=== PATIENT | female | born 1980 | race Caucasian/White ===

== ENCOUNTER 2022-07-25 07:58 | Day surgery (SDC) | payer BC, OTHER ==
[~2022-07-25] VITALS: Ht 177.8 cm; Wt 106.8 kg
--- NOTE | ~2022-07-25 | OR ---
[facility] [address] [place], [place] [address] Draft DATE OF OPERATION: 07/25/2022 SURGEON: Miguel Schulte MD PREOPERATIVE DIAGNOSIS: Chronic tonsillitis, tonsillolithiasis. POSTOPERATIVE DIAGNOSIS: Chronic tonsillitis, tonsillolithiasis. PROCEDURE: Tonsillectomy. ANESTHESIA: General orotracheal, GREEN PLUMBER, [place]. PREOPERATIVE HISTORY: Shari is a 42-year-old lady with chronic tonsillitis, chronic sore throats, tonsillolithiasis, taken to the operating room for the above-mentioned procedures. OPERATIVE PROCEDURE AND FINDINGS: After informed consent, the patient was taken to the operating room, placed in the supine position where general orotracheal anesthesia was induced. The patient and procedure were verified. The patient was repositioned. McIvor mouth gag placed into suspension. Headlight exam of the pharynx showed very retracted cryptic tonsillolithic tonsils, right much greater than left. The left tonsil was grasped with a tenaculum, retracted medially and removed from its fossa with mucosal sparing incision with Coblation. Field was dry after the procedure. Same procedure on the right tonsil. Right tonsil was much more retracted with lots of tonsilliths, more bleeding but controlled after the procedure. The mouth gag was released for several minutes. Reinspection showed no bleeding points. The pharynx was suctioned clear of blood secretions. Mouth gag was removed. The patient was awakened, extubated, transported to recovery room in good condition. No complications. BLOOD LOSS: Around 100 mL. SPECIMEN: To pathology. PATIENT NAME: SHARI WOODS OPERATIVE REPORT DATE OF : 84 REPORT #: [id number] PHYSICIAN: MIGUEL SCHULTE MD PCP: MIRACLE FRANKLIN PAC REPORT IS CONFIDENTIAL AND NOT TO BE RELEASED WITHOUT AUTHORIZATION [address] [place] [address] Draft DRAINS: None. Miguel Schulte MD GC/RORO /[id number] Copies: ~ PATIENT NAME: SHARI WOODS OPERATIVE REPORT DATE OF : 84 REPORT #: [id number] PHYSICIAN: MIGUEL SCHULTE MD PCP: MIRACLE FRANKLIN PAC REPORT IS CONFIDENTIAL AND NOT TO BE RELEASED WITHOUT AUTHORIZATION
[~2022-07-25 07:58] MED LIST: ALLER-TEC10 MG PO; MULTI VITAMIN1 EACH PO
--- NOTE | 2022-07-25 11:14 | NUR ---
07/25/22 1114 Delmi Dillard 1106 PT AWAKE AND RESPONDING TO QUESTIONS. BREATHING UNLABORED AND ON ROOM AIR. DENIES PX AND NAUSEA. C/O POST NASAL DRIP. DENIES SUCTION.
--- NOTE | 2022-07-25 11:54 | NUR ---
1140: PATIENT BACK IN DAY SURGERY ROOM FROM PACU. RATES PAIN 2/10. PATIENT C/O OF HAVING POST NASAL DRAINAGE, BUT STATES DOES NOT TASTE BLOOD. NO BLOOD SEEN IN MOUTH. DENIES NAUSEA. TOLERATING WATER. GIVEN JELLO TO EAT. AT BEDSIDE. CALL LIGHT WITHIN REACH.
--- NOTE | 2022-07-25 13:12 | NUR ---
1215: CHECKED PATIENT. TOLERATING WATER AND JELLO. C/O FEELING A "FLAP" ON THE LEFT SIDE OF THROAT. STATES RIGHT SIDE FEELS NORMAL. NO NEEDS AT THIS TIME. CALL LIGHT WITHIN REACH. AT BEDSIDE.
--- NOTE | 2022-07-25 13:15 | NUR ---
1245: PATIENT ASSISTED OOB AND TO BATHROOM BY ANOTHER RN. PER THAT NURSE, PATIENT STILL FEELS "FLAP" ON LEFT SIDE OF THROAT AT SURGERY SITE. 1300: PATIENT CONTINUES TO FEEL "FLAP" ON LEFT SIDE OF THROAT. PATIENT C/O DRAINAGE IN BACK OF THROAT BUT UNSURE IF POST NASAL DRAINAGE FROM ALLERGIES OR NOT. 1305: DR. SCHULTE CALLED AND NOTIFIED OF PATIENT FEELNG "FLAP" ON LEFT SIDE OF THROAT. DR. SCHULTE STATES PATIENT CAN STOP BY CLINIC AFTER DISCHARGE SO HE CAN EXAMINE SURGICAL SITE. PATIENT AGREEABLE TO THIS PLAN. PATIENT GETTING DRESSED.
[2022-07-25] MEDS ORDERED: HYDROCODONE-ACE15 M3 PO (13:31)
--- NOTE | 2022-07-25 15:01 | NUR ---
1335: PATIENT DRESSED. DISCHARGE INSTRUCTIONS GIVEN TO PATIENT AND . 1345: IV DC'D WNL. TIP INTACT. DRESSING APPLIED. 1350: PATIENT DISHCARGED FROM DAY SURGERY AND TAKEN UP TO DR. SCHULTE'S OFFICE VIA WHEELCHAIR. WITH PATIENT.
--- NOTE | 2022-07-27 16:30 | PATH ---
[facility] [address] [place], [place] [address] Signed SPECIMEN(S): A LEFT TONSIL SPECIMEN(S): B RIGHT TONSIL SPECIMEN SOURCE: A. LEFT TONSIL B. RIGHT TONSIL CLINICAL HISTORY: Pre: Chronic tonsillitis, tonsil lithiasis. Post: Tonsillectomy. FINAL PATHOLOGIC DIAGNOSIS: A. Left tonsil: - [place] tonsil with reactive epithelial features and acute inflammation (tonsillitis). 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 B. Right tonsils: - [place] tonsil with reactive epithelial features and acute inflammation (tonsillitis). 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 JVR:sm:C2NR MICROSCOPIC EXAMINATION: Histologic sections of all submitted blocks are examined by light microscopy. These findings, together with the gross examination, support the pathologic diagnosis. GROSS DESCRIPTION: A. The specimen, labeled and designated "[place], left tonsil," is received in formalin and consists of a tonsil that measures 3.3 x 1.3 x 0.8 cm. The mucosal surface is pink-ortega, slightly roughed with areas of folds. Specimen is inked. Sectioning of the specimen reveals pink-ortega homogenous tissue. Lead Systems Developer sections are submitted in (A1). B. The specimen, labeled and designated "[place], right tonsil," is received in formalin and consists of a tonsil that measures 2.5 x 1.7 x 0.8 cm. The mucosal surface is pink-ortega, smooth with areas of folds. Cut sections reveal a pink-ortega, homogenous surface. Lead Systems Developer section submitted in single cassette (A1). JS (under the direct supervision of a pathologist) The Gross Description was prepared using a voice recognition system. The report was reviewed for accuracy; however, sound-alike word errors, addition and/or deletions may occur. If there is any PATIENT NAME: ASHOK WOODS PATHOLOGY DATE OF : 84 REPORT #: [id number] PHYSICIAN: CHARLETTE PATHOLOGY PCP: MIRACLE FRANKLIN PAC REPORT IS CONFIDENTIAL AND NOT TO BE RELEASED WITHOUT AUTHORIZATION [facility] [address] [place], [place] [address] Signed question about this report, please contact Client Services. PERFORMING LABORATORY: The technical component was performed by [facility], [address] [place] [id number] (CLIA# [id number]). Professional interpretation was performed by [facility] - [facility], [address] [place] [id number] (CLIA#: [id number]). Diagnostician: Gurjit Butts MD Pathologist Electronically Signed 07/27/2022 Copies: ~ PATIENT NAME: ASHOK WOODS PATHOLOGY DATE OF : 84 REPORT #: [id number] PHYSICIAN: CHARLETTE MARIEE PCP: MIRACLE FRANKLIN PAC REPORT IS CONFIDENTIAL AND NOT TO BE RELEASED WITHOUT AUTHORIZATION
== END 2022-07-25 13:50 | disposition home or self-care (01) ==
LOC: DS 07:58 → OPS 07:58
PROVIDERS: ATTEND Otolaryngology
PROC: 0CTPXZZ Resection of Tonsils, External Approach (ICD-10-PCS; principal; 2022-07-25 10:00)
DX: J35.01 Chronic tonsillitis (principal); J35.8 Other chronic diseases of tonsils and adenoids
CPT/HCPCS: 00170; J0330; J1100; J2001; J2405; J2704; J3010; J7121